=== PATIENT | female | born 1955 | race Caucasian/White ===

== ENCOUNTER → 2017-10-21 09:32 | Outpatient (CLI) | payer BC, SELFPAY ==
--- NOTE | 2017-10-21 09:36 | MM_ITS ---
MM Dig screening mamm BI w/CAD CAD Screening ORDERING PHYSICIAN : Hnana Elizondo PATIENT AGE: 62 years GENDER: Female COMPARISON: Stable appearing nodularity bilaterally. TECHNIQUE: Standard CC and MLO images were obtained. R2 CAD reviewed. FINDINGS: Fairly low-density breast with minimal fibroglandular elements and minimal RIGHT BREAST:The small focal area of density at the lateral central right breast is a long-standing feature and dates back to 2010. No significant change. Follow up one year recommended LEFT BREAST:Minor low-density nodularity at the lateral retroareolar region is remain stable since studies dating back to at least 2010. No significant change follow-up in one or adequate here on left as well. Mild ductal prominence lateral retroareolar region appears similar and stable as well IMPRESSION: Stable bilateral mammogram with no significant new findings. Mild asymmetry with Stable small areas of nodular density bilateral BI-RADS Category: 2 Benign Finding(s) RECOMMENDED FOLLOW-UP: 1YR - 1 YEAR FOLLOW-UP (A letter has been sent to the patient regarding results of the study.) Screening
== END ==
PROVIDERS: Family Provider Internal Medicine Adolescent Medicine; PCP Internal Medicine Adolescent Medicine; Visit Provider Family Medicine
DX: Z12.31 Encounter for screening mammogram for malignant neoplasm of breast (principal)
CPT/HCPCS: 77067

== ENCOUNTER → 2018-02-26 10:48 | Outpatient (CLI) | payer BC, SELFPAY ==
[2018-02-26 10:53] LABS: Microscopic, Urine URINE MICROSCOPIC (MICROSCOPIC)
[2018-02-26 11:24] LABS: Basophils % 0.8 % (0.1-2.0); Eosinophils # 0.1 K/mm3 (0.0-0.4); Eosinophils % 2.8 % (0.1-12.0); Hematocrit 42.7 % (37.0-47.0); Hemoglobin 13.3 g/dL (12.2-16.2); Lymphocytes % 20.7 K/mm3 (10-50); Mean Corpuscular HGB Conc 31.1 g/dL (31.8-35.4); Mean Corpuscular Hemoglobin 26.5 pg (27.0-31.2); Mean Corpuscular Volume 85.4 fl (81-99); Mean Platelet Volume 6.7 fl (7.4-10.4); Monocytes # 0.2 K/mm3 (0.1-1.0); Monocytes % 4.3 % (1.7-9.3); Neutrophils # 3.5 K/mm3 (1.8-7.8); Neutrophils % 71.4 % (37.0-80.0); Platelet Count 330 K/mm3 (142-424); Red Cell Distribution Width 12.8 % (11.5-17.5); White Blood Count 4.9 K/mm3 (4.8-10.8)
[2018-02-26 11:29] LABS: Appearance,Urine CLEAR (Clear); Bilirubin,Urine Negative (Negative); Blood, Urine Negative (Negative); Color,Urine YELLOW (Yellow); Glucose,Urine (UA) Negative (Negative); Ketones,Urine Negative (Negative); Leukocyte Esterase,Urine Negative (Negative); Nitrate,Urine Negative (Negative); PH,Urine 5.5 (5.0-8.5); Protein,Urine Negative (Negative); Specific Gravity, Urine 1.015 (1.005-1.030); Urobilinogen,Urine 0.2 EU/dl (0.2)
[2018-02-26 11:46] LABS: Bacteria,Urine Trace /lpf
[2018-02-26 11:59] LABS: Creatinine,Urine Random 101 mg/dL (20-320)
[2018-02-26 12:04] LABS: Albumin Level 3.6 gm/dL (3.4-5.0); Anion Gap 15.9 mEq/L (5-15); Blood Urea Nitrogen 24 mg/dL (7-18); Calcium 9.7 mg/dL (8.5-10.1); Carbon Dioxide 27 mmol/L (21.0-32.0); Chloride 104 mmol/L (98-107); Creatinine,Serum 1.22 mg/dL (0.55-1.02); Estimated Glomerular Filt Rate 45 ml/min (>60); GFR (African American) 54 ML/MIN (>60); Glucose 105 mg/dL (74-106); Phosphorous 4.3 mg/dL (2.4-4.9); Potassium 4.9 mmoL/L (3.5-5.1); Sodium 142 mmol/L (136-145)
[2018-02-28 13:34] LABS: Vitamin D 25 Hydroxy 42.5 ng/mL (30.0-100.0)
[2018-02-28 13:35] LABS: Parathyroid Hormone Intact 77 pg/mL (15-65)
[2018-02-28 13:37] LABS: Microalbumin, Urine 56.4 ug/mL (Not Estab.)
== END ==
PROVIDERS: Visit Provider Internal Medicine Nephrology
DX: N18.3 Chronic kidney disease, stage 3 (moderate) (principal)
CPT/HCPCS: 36415; 80069; 81001; 82043; 82330; 82570; 82652; 83970; 85025

== ENCOUNTER → 2018-03-03 12:04 | Outpatient (POV) | payer BC, SELFPAY | PROVIDERS: Family Provider Internal Medicine Adolescent Medicine; PCP Internal Medicine Adolescent Medicine; Visit Provider Internal Medicine Nephrology | DX: Z00.00 Encounter for general adult medical examination without abnormal findings (principal) ==

== ENCOUNTER 2024-01-27 14:12 | Outpatient (CLI) | payer MEDICARE, SELFPAY ==
[2024-01-27 15:12] LABS: Blood Urea Nitrogen 26 mg/dl (7-17); Estimated Glomerular Filt Rate 45 ml/min (>60); GFR (African American) 54 ML/MIN (>60)
== END 2024-01-27 23:59 | disposition home or self-care (01) ==
LOC: LAB 14:13
PROVIDERS: Visit Provider Urology
DX: N19 Unspecified kidney failure (principal); Z01.812 Encounter for preprocedural laboratory examination
CPT/HCPCS: 36415; 82565; 84520

== ENCOUNTER 2024-02-03 14:49 | Outpatient (CLI) | payer MEDICARE, SELFPAY ==
--- NOTE | 2024-02-03 14:49 | XR_ITS ---
FINAL REPORT CLINICAL HISTORY: renal failure COMPARISON: None FINDINGS: SINGLE VIEW ABDOMEN A single view of the abdomen was obtained. There is a nonobstructive bowel gas pattern. There is a large amount of stool present in the colon. There are no abnormal dilated loops of small bowel. There is a subtle density overlying the left kidney, that may represent a small left renal stone. IMPRESSION: Nonobstructive bowel gas pattern with a large stool burden. Subtle density overlying the left kidney, may possibly represent a small renal stone. Reviewed, Interpreted and Dictated by Rachid Rush MD Transcribed by Joelle Mendez Authenticated and [facility]
--- NOTE | 2024-02-03 14:49 | US_ITS ---
FINAL REPORT CLINICAL HISTORY: .hx of atrophic kid COMPARISON: None FINDINGS: RENAL ULTRASOUND: The right kidney measures 10.9 cm in length. No evidence of hydronephrosis is seen. There is a questionable echogenic focus in the right kidney that may represent a small nonobstructing stone. No focal mass is present. The left kidney is atrophic, measuring 5.7 cm in length. No evidence of hydronephrosis or mass is noted in the left kidney. IMPRESSION: Atrophic left kidney, 5.7 cm in length. Questionable echogenic focus in the right kidney that may represent a small nonobstructing renal stone. No hydronephrosis is present. Reviewed, Interpreted and Dictated by Rachid Rush MD Transcribed by Joelle Mendez Authenticated and [facility]
[2024-02-03 15:20] LABS: Collection Time,Urine 24 hours; Patient Height,Urine 55 inches; Patient Weight,Urine 171 lbs
[2024-02-03 15:21] LABS: Total Volume,Urine 1350 mL (250-2400)
[2024-02-03 16:16] LABS: Creatinine 24 Hour,Urine 864 mg/24hr (630-2500)
[2024-02-03 16:24] LABS: Creatinine Clearance Urine 48.9 mL/min (25-115); Creatinine,Urine Random 64 mg/dL (Not Estab.)
== END 2024-02-03 23:59 | disposition home or self-care (01) ==
LOC: RAD 14:49
PROVIDERS: Visit Provider Urology
DX: N19 Unspecified kidney failure (principal); N20.0 Calculus of kidney
CPT/HCPCS: 74018; 76770; 82575

== ENCOUNTER 2024-02-13 07:10 | Outpatient (CLI) | payer MEDICARE, SELFPAY ==
--- NOTE | 2024-02-13 07:11 | CT_ITS ---
FINAL REPORT TECHNIQUE: Axial images through the abdomen and pelvis were performed without contrast. This study was performed with techniques to keep radiation doses as low as reasonably achievable, (ALARA). Individualized dose reduction techniques using automated exposure control or adjustment of mA and/or kV according to the patient's size were employed. CLINICAL HISTORY: Renal failure COMPARISON: None FINDINGS: Abdomen: There is a nodule in the medial right lung base measuring 8 mm in size, that on coronal images appears more linear. This may represent post inflammatory change. The liver is enlarged, measuring up to 20 cm in craniocaudal dimension. Scattered granulomas are present in the liver and spleen. The gallbladder is present. The pancreas and adrenals are unremarkable. There are multiple bilateral nonobstructing renal stones present, the largest measuring 8 mm in size in the lower pole of the left kidney. This is likely responsible for the echogenic focus seen on ultrasound of 02/03/2024. Pelvis: The urinary bladder is unremarkable. The appendix is normal in appearance. There is no pelvic mass or inflammation. IMPRESSION: No acute abnormality. Multiple bilateral nonobstructing renal stones are present as described, which are likely responsible for the echogenic focus seen on the renal ultrasound examination of February 02. Hepatomegaly as described. There is a nodule in the medial right lung base, 8 mm in size, that may represent post inflammatory change as on coronal images it appears more linear. If clinically indicated follow-up chest CT could be performed for further evaluation. Reviewed, Interpreted and Dictated by Rachid Rush MD Transcribed by Joelle Mendez Authenticated and [facility]
== END 2024-02-13 23:59 | disposition home or self-care (01) ==
LOC: RAD 07:11
PROVIDERS: Visit Provider Urology
DX: N19 Unspecified kidney failure (principal)
CPT/HCPCS: 74176